=== PATIENT | female | born 1970 | race Two or more races ===

== ENCOUNTER → 2019-02-11 | Outpatient (CLI) | payer OTHER ==
[2019-02-11 10:36] LABS: Basophils # (auto) 0.1 uL; Basophils % (auto) 0.9 % (0.0-2.0); Eosinophils # (auto) 0.1 uL; Eosinophils % (auto) 1.7 % (0.0-7.0); Hematocrit 40.5 % (36.0-46.0); Hemoglobin 13.8 g/dL (12.2-16.2); Lymphocytes # (auto) 2.2 uL; Lymphocytes % (auto) 34.7 % (10.0-50.0); Mean Corpuscular Hemoglobin 29.3 pg (28.0-32.0); Mean Corpuscular Volume 85.9 fL (80.0-100.0); Monocytes # (auto) 0.4 uL; Monocytes % (auto) 6.1 % (0.0-12.0); Neutrophils # (auto) 3.6 uL; Neutrophils % (auto) 56.6 % (37.0-80.0); Nucleated Red Blood Cells % 0.1 %; Platelet Count (auto) 296 10^3/uL (140-450); Red Blood Cells 4.71 10^6/uL (4.0-5.20); Red Cell Distribution Width 12.9 % (11.8-14.3); White Blood Cell 6.4 10^3/uL (4.4-10.8)
[2019-02-11 11:16] LABS: Albumin 3.5 g/dL (3.4-5.0); Calcium 8.5 mg/dL (8.5-10.1); Potassium 3.6 mmol/L (3.5-5.1)
[2019-02-11 11:21] LABS: Bilirubin, Total 0.3 mg/dL (0.2-1.0)
== END | disposition home or self-care (01) ==
LOC: LAB 10:19
PROVIDERS: ATTEND Internal Medicine
DX: Z00.00 Encounter for general adult medical examination without abnormal findings (principal); I10 Essential (primary) hypertension; Z83.3 Family history of diabetes mellitus
CPT/HCPCS: 36415; 80053; 80061; 82043; 82306; 83036; 84443; 85025